=== PATIENT | male | born 1965 | race African-American/Black ===

== ENCOUNTER 2022-12-18 15:22 | Emergency (ER) | payer MEDICAID ==
[~2022-12-18] VITALS: Ht 167.6 cm; Wt 114.0 kg
[2022-12-18 15:30] VITALS: BP 188/123; PULSE 113; RESP 20; TEMP 99.4; O2SAT 94
== END 2022-12-18 15:56 | disposition home or self-care (01) ==
LOC: ER 15:22
DX: R51.9 Headache, unspecified (principal); M54.2 Cervicalgia; E11.9 Type 2 diabetes mellitus without complications; I10 Essential (primary) hypertension; V89.2XXA Person injured in unspecified motor-vehicle accident, traffic, initial encounter; Y93.89 Activity, other specified; Y92.89 Other specified places as the place of occurrence of the external cause; Y99.8 Other external cause status
CPT/HCPCS: 99283